=== PATIENT | male | born 1975 | race American Indian/Alaskan Native ===

== ENCOUNTER 2020-04-10 04:07 | Emergency (ER) | payer OTHER ==
--- NOTE | 2020-04-10 04:50 | XRay Report ---
LEFT HAND 3 VIEW(S) INDICATION / CLINICAL INFORMATION: pain COMPARISON: None available. FINDINGS: BONES / JOINT(S): No acute fracture or subluxation. No significant arthritis. SOFT TISSUES: No significant abnormality. ADDITIONAL FINDINGS: None. Signer Name: Edilson Spears MD Signed: 04/10/2020 4:46 AM Workstation Name: [id number]
[2020-04-10 04:57] VITALS: BP 123/64
== END 2020-04-10 05:45 | disposition home or self-care (01) ==
LOC: ED 04:07
DX: S69.92XA Unspecified injury of left wrist, hand and finger(s), initial encounter (principal); X58.XXXA Exposure to other specified factors, initial encounter; Y93.89 Activity, other specified; Y92.89 Other specified places as the place of occurrence of the external cause; Y99.8 Other external cause status
CPT/HCPCS: 99283